=== PATIENT | male | born 1965 | race Caucasian/White ===

== ENCOUNTER → 2024-01-22 | Outpatient (CLI) | payer OTHER, SELFPAY ==
--- NOTE | 2024-01-22 11:03 | RAD_ITS ---
INDICATION: PAIN EXAMINATION/TECHNIQUE: X-RAY - RIGHT XR Shoulder Min 2 Views COMPARISON: No previous relevant examinations for comparison. FINDINGS: SOFT TISSUES: No soft tissue swelling or gas. No radiopaque foreign body. BONES/JOINTS: 1. No acute fracture or subluxation.. Normal alignment. Preservation of the joint space.. No sclerotic or destructive changes observed. 2. There is normal glenohumeral motion. There is normal alignment of the acromioclavicular joint. 3. The clavicle, acromion, scapula and RIGHT rib cage have normal appearance. RAD/Shoulder min 2 Views IMPRESSION: 1. No fracture malalignment or focal bony or joint space abnormality involving the shoulder.. Electronically Signed: Bridger Mcintyre MD at 20:34 EDT ,
== END | disposition home or self-care (01) ==
LOC: MTRAD 11:01
PROVIDERS: PCP Family Medicine; Referring Provider Family Medicine; Visit Provider Family Medicine
DX: M25.511 Pain in right shoulder (principal)
CPT/HCPCS: 73030

== ENCOUNTER → 2024-01-23 | Outpatient (CLI) | payer OTHER, SELFPAY ==
[2024-01-23 08:02] LABS: Absolute Lymphocyte Count 2.28 X10^3/uL (0.83-4.51); Basophil# 0.05 X10^3/uL; Basophil% 0.8 % (0-1); Eosinophil# 0.13 X10^3/uL; Eosinophils% 2.1 % (0-5); Hematocrit 45.5 % (40-54); Hemoglobin 14.6 g/dL (13.0-16.5); Lymphocyte # 2.28 X10^3/ul (0.83-4.51); Lymphocyte % 37.1 % (19-41); Mean Corp Hgb Conc 32.1 g/dL (32-36); Mean Corpuscular Hgb 29.1 pg (27.0-32.0); Mean Corpuscular Volume 90.6 fL (80-94); Mean Platelet Vol. 10.6 fl (6.2-12.0); Monocyte# 0.72 X10^3/uL; Monocyte% 11.7 % (0-10); NRBC Flagged by Analyzer 0 % (0-5); Neutrophil # 2.95 X10^3/uL (2.7-7.7); Platelet Count 195 K/mm3 (150-450); RBC Distribution Width CV 13.3 % (11.6-14.6); RBC Distribution Width SD 44.1 fl (35.1-43.9); Red Blood Count 5.02 M/mm3 (4.6-6.2); White Blood Count 6.2 K/mm3 (4.4-11.0)
[2024-01-23 08:32] LABS: AST(SGOT) 25 U/L (15-37); Alanine Aminotransfer ALT/SGPT 32 U/L (16-61); Albumin, Serum 3.6 g/dL (3.2-5.0); Alkaline Phosphatase 97 U/L (45-117); Anion Gap 2 (5-15); BUN 18 mg/dL (7-18); BUN/Creat Ratio 12.3 RATIO (10-20); Calcium,Total 8.8 mg/dL (8.5-10.1); Chloride 109 mmol/L (98-107); Cholesterol 267 mg/dL (200); Creatinine, Serum 1.46 mg/dL (0.70-1.30); EST Glomerular Filtration Rate 52 mL/min (>60); Est Glom Filt Rate - Afr Amer 63 mL/min (>60); Globulin 3.7 g/dL (2.2-4.2); Glucose 102 mg/dL (74-106); High Density Lipoprotein 58 mg/dL; Potassium 4.6 mmol/L (3.5-5.1); Protein, Total 7.3 g/dL (6.4-8.2); Sodium Level 139 mmol/L (136-145); Triglycerides 185 mg/dL; Very Low Density Lipoprotein 37 mg/dL (5-40)
== END | disposition home or self-care (01) ==
LOC: LAB 07:36
PROVIDERS: PCP Family Medicine; Referring Provider Family Medicine; Visit Provider Family Medicine
DX: Z13.1 Encounter for screening for diabetes mellitus (principal); Z12.5 Encounter for screening for malignant neoplasm of prostate; Z13.220 Encounter for screening for lipoid disorders; R68.82 Decreased libido
CPT/HCPCS: 36415; 80053; 80061; 84153; 84403; 85025; G0103

== ENCOUNTER 2024-03-09 08:15 | Outpatient (RCR) | payer OTHER, SELFPAY ==
--- NOTE | 2024-03-09 09:27 | HP.PTEVAL_ITS ---
Patient's Visit Information Visit Information Visit Information: SKY THOMPSON is a 59 year old M referred to Physical Therapy by Sandra Braun MD with a diagnosis of R shoulder pain. Date of Evaluation: 03/09/24 Physical Therapist: Horacio Powers DPT Visit Plan Frequency: 1x/Week Duration: 6 Weeks Plan: 1) RTC strengthening and progressive biceps loading 2) DFM to biceps/anterior shoulder Pt. given exercises today and is to complete I for a few weeks then follow up with PT as needed. Subjective Subjective: Pt. is here today for his initial evaluation with diagnosis of R shoulder pain. Pt. reports no mech of injury, but has had increasing anterior R shoulder pain for the last few months. He goes to the gym, has been so for ~1.5 years. Recently having issues with OH press and some incline benching. He did have an Xray- negative for injury. No MRI at this point in time. No real N/T noted. Pt. is having some discomfort with sleeping on his R side though. Pt. would like to get back to all of his recreational gym exercises without limitations. Pain R anterior shoulder: Pain Intensity (Out of 10): 1 Pain Intensity Range: 0 and 4 Objective Objective: POSTURE: PT. has slight rounded shoulders with slight slouched posture. Pt. is able to self correct. PALPATION: Pt. has marked tenderness at anterior shoulder, long head of biceps and supraspinatus insertion. NEURO: Normal of BUEs, normal sensation and DTR noted. ROM: R shoulder: PROM: full motion, increase at end range flexion, abduction and IR at 90deg of abduction. AROM: Flexion: 170deg mild increase NW, abd 170deg mil d increase NW, functional ER C5 mild increase NW, functional IR L4 mild increase NW. MMT: L shoulder: flexion 21#, abd 22#, ext 38#, ER 27.1#, IR 32.5#. R shoulder: flexion 15.3# mild increase NW, abd 13.4# mild increase NW, ER 22.1#, IR 27.8#. Special Tests R Shoulder Drop Sign - IS Test: Negative R Shoulder Empty Can - SS: Positive R Shoulder Belly Press - SupScap: Negative R Shoulder Neer - Impingement: Positive R Shoulder Molina Yossi - Impingement: Positive R Shoulder Biceps Load Test - Labrum: Negative R Shoulder Yeargasons - SLAP: Negative R Shoulder Speeds Test - Labrum/Biceps: Negative Comments: - hornblowers test Balance/Special Test Scores Quick DASH Score: 15.9075 Goals Goal 1:: LTG: Pt. to be I with HEP for RTC strengthening and biceps loading. Goal Time Frame: 4-6 Weeks Goal 2:: STG: Pt. to sleep throughout the night without increase in symptoms. Goal Time Frame: 2-4 Weeks Goal 3:: LTG: Pt. to have increased R shoulder strength increased by 5# throughout. Goal Time Frame: 4-6 Weeks Goal 4:: LTG: pt. to complete all OH pressing and gym workout without increase in shoulder pain. Goal Time Frame: 6-8 Weeks Rehabilitation Potential Physical Therapy Diagnosis: Pt. has signs and symptoms consistent with R should er pain. Pt. has testing suggesting some slight RTC and biceps involvement. Pt. is tender to the touch at anterior shoulder and some tenderness with ER movements. I would recommend that he work on slowly increasing loading of RTC external rotators and biceps tendons, progressing back into exercises as tolerated. Rehabilitation Potential: Excellent Anticipated Interventions Patient/Client Instruction: Educate patient on: Condition, Plan of Care, Risk Factors and Benefits of Fitness Program For the Purpose of:: To improve decision making, To facilitate caregiver knowledge, To improve self management, To prevent re-injury and To improve ability to perform tasks related to life management Therapeutic Exercise to Include: Strength training, Power training and Scapular Strength/Stabilization For the Purpose of:: To decrease pain, To increase ROM, To improve nutrient delivery to tissue, To increase oxygenation perfusion and To improve muscle performance and motor function Comment: DFM For the Purpose of:: To decrease pain, To improve nutrient delivery to tissue, To increase oxygenation perfusion and To improve muscle performance and motor function Text: Thank you for the opportunity to evaluate your patient. For Medicare and Medicare HMO plans, please review the plan of care and approve it. It will need to be FAXED BACK to us at [phone] for Medicare purposes. For Medicare only, by signing this I certify the plan of care. Please let me know if there are questions or concerns regarding this plan of care. Physician Signature: Date:
== END 2024-03-09 19:00 | disposition home or self-care (01) ==
LOC: PT 08:15
PROVIDERS: PCP Family Medicine; Referring Provider Family Medicine; Visit Provider Family Medicine
DX: M25.511 Pain in right shoulder (principal)
CPT/HCPCS: 97110; 97164

== ENCOUNTER 2024-04-06 07:37 | Day surgery (SDC) | payer OTHER, SELFPAY ==
[2024-04-06] VITALS (8 sets, daily range): BP systolic 95–121; BP diastolic 61–75; PULSE 55–64; RESP 14–18; TEMP 36.1–36.6; O2SAT 96–100; BMI 26.6
[2024-04-06] MEDS: Lactated Ringers 1,000 ML 15 ML IV (08:07)
--- NOTE | 2024-04-06 08:50 | PCM.PRE.AN2 ---
ASA Classification* ASA Classification ASA Classification: 2 Assessment & Plan Anesthesia* Anesthesia Assessment Anesthesia Assessment: Discussed sedation and/or anesthesia options, risks, benefits, and alternatives with patient/parents/legal guardian/POA. Questions invited. The patient/parents/legal guardian/POA seems to understand and agrees to proceed with anesthesia plan. Reviewed the physical assessment, medical history, allergy history and patient home medications list prior to surgery/procedure/anesthetic and documented any changes. Performed airway and anesthesia risk assessments. Anesthesia Type Anesthesia Type: MAC (see written pre anesthesia record for full assessment) Anesthesia Focused Assessment* Temperature: 98 F Pulse Rate: 58 Blood Pressure: 121/75 Respiratory Rate: 16 Pulse Ox: 99 Airway Assessment Mouth opens: >3 cm Mallampati Score: II Focused Labs Anesthesia Preop lab: CBC WBC 6.2 K/mm3 (4.4-11.0) 01/23/24 07:37 RBC 5.02 M/mm3 (4.6-6.2) 01/23/24 07:37 Hgb 14.6 g/dL (13.0-16.5) 01/23/24 07:37 Hct 45.5 % (40-54) 01/23/24 07:37 Plt Count 195 K/mm3 (150-450) 01/23/24 07:37 CHEMISTRY Potassium 4.6 mmol/L (3.5-5.1) 01/23/24 07:37 Sodium 139 mmol/L (136-145) 01/23/24 07:37 BUN 18 mg/dL (7-18) 01/23/24 07:37 Creatinine 1.46 mg/dL (0.70-1.30) H 01/23/24 07:37 Glucose 102 mg/dL (74-106) 01/23/24 07:37 COAG Pre-Assessment Diagnosis/Proposed Procedure Planned Operative Procedure(s): COLONOSCOPY-OA Anesthesia History Anesthesia History - photo retoucher: Anesthesia History - photo retoucher Hx Hospitalization No 03/30/24 13:32 Any Problems With Anesthesia No 03/30/24 13:32 Cholinesterase deficiency No 03/30/24 13:32 You/Your Family Experience No 03/30/24 13:32 fever (hyperthermia) with Relationship Recent Exposure to Contagious No 04/06/24 08:04 Disease Does patient have nerve No 03/30/24 13:32 stimulator Patient instructed to have device shut off --Does patient have Pacemaker No 04/06/24 08:04 or ICD? When Was Last Pacemaker Check QUESTION #4 FULL TEXT: You/Your Family Experience fever (hyperthermia) with Anesthesia Last Oral Intake Last Oral intake: Last Oral Intake NPO since 07:50 04/06/24 08:04 Meds taken in AM with sips of water? Meds patient instructed to take am of surgery PONV PONV - photo retoucher: PONV - photo retoucher Female No 03/30/24 13:32 HX of Motion Sickness No 03/30/24 13:32 HX of N/V After Surgery No 03/30/24 13:32 Non-Smoker Yes 03/30/24 13:32 Duration of Surgery greater No 03/30/24 13:32 than 60 minutes Number of Risk Factors 1 03/30/24 13:32 PONV Score Low Risk 03/30/24 13:32 Height & Weight Height & Weight: Anesthesia: Height & Weight Height 5 ft 10 in 04/06/24 08:04 Weight: 84.1 kg 04/06/24 08:04 Body Mass Index (BMI) 26.6 04/06/24 08:04 Respiratory Assessment Respiratory Assessment - photo retoucher: Respiratory Tract Infection Hx - photo retoucher Hx Respiratory Tract Infection No 03/30/24 13:32 STOP Sleep Apnea STOP Sleep Apnea - photo retoucher: STOP Sleep Apnea - photo retoucher Hx Hypertension No 03/30/24 13:32 Hx Sleep Apnea No 03/30/24 13:32 CPAP BIPAP Do you snore loudly (louder No 03/30/24 13:32 than talking or can be heard Do you often feel tired/ No 03/30/24 13:32 fatigued/ sleepy during daytime? Has anyone observed you stop No 03/30/24 13:32 breathing during sleep? STOP Results Negative 03/30/24 13:32 QUESTION #5 FULL TEXT : Do you snore loudly (louder than talking or can be heard through closed doors)? Tobacco Use History Tobacco Use History - photo retoucher: Tobacco Use History - photo retoucher Tobacco Use Smoking Status Never smoker 03/30/24 13:32 Hx Tobacco Use No 03/30/24 13:32 Years Smoking Packs Smoked per Day Smoking Cessation Date was within the last 15 years Hx Smoking Cessation Date Hx Smoking Cessation Counseling Hematologic Medial History Hematologic Hx - photo retoucher: Hematologic Medical Hx - counter roller Hx of Blood Transfusion No 03/30/24 13:32 Hx of Transfusion in last 3 No 03/30/24 13:32 Months Date of Last Transfusion (if within last 3 months) Ever experience any problems No 03/30/24 13:32 with transfusion(s)? Specify any problems Hx of Preganancy in last 3 N/A 03/30/24 13:32 Months Nurse Filling Out Transfusion VCHRISTIN 03/30/24 13:32 & Questions: Date: 03/30/24 03/30/24 13:32 Time: 13:33 03/30/24 13:32 Patient unable to answer at this time (ie. confused, unrespo /Reproduction History /Reproductive History - photo retoucher: /Reproductive Hx- photo retoucher Hx Now Gestational Age (in weeks): EDC: Hx Hx Para Hx Section SAB Active Medications Active Medications: Current Medications Generic Name Dose Route Start Last Admin Trade Name Freq PRN Reason Stop Dose Admin Lactated Ringer's 1,000 mls @ 15 mls/hr 04/06/24 08:00 04/06/24 08:07 IV 15 mls/hr .Q48H KAM Administration PFSH Medical History Wears glasses Alcohol use Arthritis Back pain Non-smoker Family history of kidney stone Migraine Hx of hepatitis C Hx of renal calculi Family history of colon cancer in father Home Medications ?Medication ?Instructions ?Recorded ?Last Taken ?Type [id number]-[id number]-[id number] 250 1 tab PO Q4-6H PRN pain 02/18/24 Unknown History mg-250 mg-65 mg tablet (Excedrin Migraine) ibuprofen 200 mg tablet 200 mg PO Q6H PRN pain 02/18/24 Unknown History Allergy/AdvReac Type Severity Reaction Status Date / Time No Known Allergies Allergy Verified 04/06/24 08:04 Family History Father Colon cancer, Onset Age: 76 Patient states mass and polyps removed, Unsure if cancerous Lung cancer Prostate cancer Mother Kidney disease Surgical History Hx of tonsillectomy Hx of inguinal hernia repair Hx of colonoscopy Social History household members: spouse current occupational status: employed Smoking Status: Never smoker alcohol intake: current details: moderate alcohol substance use type: does not use Review of Systems (Anesthesia) ROS Narrative System reviewed and no additional complaints, except as documented.
--- NOTE | 2024-04-06 08:55 | PCM.POST.ANE ---
Anesthesia: Postop Eval I Current Vital Signs Temperature: 96.9 F Pulse Rate: 55 Blood Pressure: 95/61 Respiratory Rate: 14 Pulse Ox: 96 Oxygen Delivery Method: Room Air Assessment Airway patent: Yes Spontaneous unlabored respirations: Yes Mental status: Awake and Calm nausea: No Vomiting: No Anesthesia Complication: No Fluid Hydration Crystalloid volume administer (ml): 300 Total IV fluid infused: 300 Progress Note Anesthesia document: Postop Eval 1 completed: Yes
--- NOTE | 2024-04-06 09:24 | OP.COLON_ITS ---
Patient Name: Steve Meyers Procedure Date: 04/06/2024 9:02 AM Date of : 1965 Age: 59 Procedure: Colonoscopy Indications: Screening for colorectal malignant neoplasm Providers: Rakesh Cazares MD Referring MD: Sandra Braun Md Medicines: Propofol per Anesthesia Patient Profile: This is a 59 year old male. Refer to note in patient chart for documentation of history and physical. Last Colonoscopy: 10 years ago. Complications: No immediate complications. Procedure: Pre-Anesthesia Assessment: - Prior to the procedure, a History and Physical was performed, and patient medications and allergies were reviewed. The patient's tolerance of previous anesthesia was also reviewed. The risks and benefits of the procedure and the sedation options and risks were discussed with the patient. All questions were answered, and informed consent was obtained. Prior Anticoagulants: The patient has taken no anticoagulant or antiplatelet agents. After reviewing the risks and benefits, the patient was deemed in satisfactory condition to undergo the procedure. After I obtained informed consent, the scope was passed under direct vision. Throughout the procedure, the patient's blood pressure, pulse, and oxygen saturations were monitored continuously. The Colonoscope was introduced through the anus and advanced to the cecum, identified by appendiceal orifice and ileocecal valve. The colonoscopy was performed without difficulty. The patient tolerated the procedure well. The quality of the bowel preparation was good. The ileocecal valve, appendiceal orifice, and rectum were photographed. Scope In: 9:09:40 AM Scope Withdrawal Time 0 hours 6 minutes 1 second Scope Out: 9:21:13 AM Total Procedure Duration Time 0 hours 11 minutes 33 seconds Findings: The entire examined colon appeared normal on direct and retroflexion views. Impression: - The entire examined colon is normal on direct and retroflexion views. - No specimens collected. Recommendation: - Discharge patient to home. - Resume previous diet. - Continue present medications. - Repeat colonoscopy in 10 years for screening purposes. Procedure Code(s): --- Professional --- 85024, Colonoscopy, flexible; diagnostic, including collection of specimen(s) by brushing or washing, when performed (separate procedure) Diagnosis Code(s): --- Professional --- Z12.11, Encounter for screening for malignant neoplasm of colon CPT copyright 2021 [employer]. All rights reserved. The codes documented in this report are preliminary and upon software engineering analyst review may be revised to meet current compliance requirements. Rakesh Cazares MD 04/06/2024 9:24:02 AM This report has been signed electronically. Number of Addenda: 0 Note Initiated On: 04/06/2024 9:02 AM
--- NOTE | 2024-04-06 09:24 | OP.CCLET_ITS ---
04/06/2024 Sandra Braun Md Re : Colonoscopy procedure for Steve Meyers Dear Aparna This procedure was performed on Saturday, April 06, 2024. My impressions and recommendations are as follows: Impressions : - The entire examined colon is normal on direct and retroflexion views. - No specimens collected. Recommendations : - Discharge patient to home. - Resume previous diet. - Continue present medications. - Repeat colonoscopy in 10 years for screening purposes. My findings are described in the full procedure note, which is enclosed. If I can be of further assistance, please feel free to contact me at Doctor phone number(s): , Work: . Sincerely, Rakesh Cazares MD 04/06/2024 9:24:02 AM This report has been signed electronically.
--- NOTE | 2024-04-06 09:26 | PCM.POST.ANE ---
Anesthesia: Postop Eval I Current Vital Signs Temperature: 97.7 F Pulse Rate: 64 Blood Pressure: 106/69 Respiratory Rate: 16 Pulse Ox: 98 Assessment Airway patent: Yes Spontaneous unlabored respirations: Yes Mental status: Awake and Calm nausea: No Vomiting: No Anesthesia Complication: No Fluid Hydration Crystalloid volume administer (ml): 400 Total IV fluid infused: 400 Progress Note Anesthesia document: Postop Eval 1 completed: Yes
--- NOTE | 2024-04-06 09:34 | POSTOPAN2_ITS ---
Anesthesia Postop Eval I Sum Postop Eval Completion status Anesthesia document: Postop Eval 1 completed: Yes Anesthesia Postop Eval I Summary Anesthesia Postop Eval I Summary: Anesthesia Postop Eval I: Assessment Summary Airway patent Yes 04/06/24 09:31 SOCIAL RESEARCH ASSISTANT.[email or web address] Spontaneous unlabored Yes 04/06/24 09:31 SOCIAL RESEARCH ASSISTANT.GDOTT respirations Mental status Awake,Calm 04/06/24 09:31 SOCIAL RESEARCH ASSISTANT.GDOTT nausea No 04/06/24 09:31 SOCIAL RESEARCH ASSISTANT.GDOTT Vomiting No 04/06/24 09:31 SOCIAL RESEARCH ASSISTANT.GDOTT Anesthesia Postop Eval I: Fluid Summary Crystalloid volume administer 400 04/06/24 09:31 SOCIAL RESEARCH ASSISTANT.GDOTT (ml) Colloids volume administered ( ml) Blood Product volume administered (ml) Total IV fluid infused 400 04/06/24 09:31 SOCIAL RESEARCH ASSISTANT.GDOTT Anesthesia Postop Eval I: Summary Notes Anesthesia Complication No 04/06/24 09:31 SOCIAL RESEARCH ASSISTANT.GDOTT Anesthesia Complication Comment: Post-operative progress note Anesthesia: Postop Eval II Evaluation Mental status: Awake Pain Level: 0 nausea: No Vomiting: No
--- NOTE | 2024-04-06 09:34 | PCM.POSTANE2 ---
Anesthesia Postop Eval I Sum Postop Eval Completion status Anesthesia document: Postop Eval 1 completed: Yes Anesthesia Postop Eval I Summary Anesthesia Postop Eval I Summary: Anesthesia Postop Eval I: Assessment Summary Airway patent Yes 04/06/24 09:31 FORECLOSURE SPECIALIST.GDOTT Spontaneous unlabored Yes 04/06/24 09:31 FORECLOSURE SPECIALIST.GDOTT respirations Mental status Awake,Calm 04/06/24 09:31 FORECLOSURE SPECIALIST.GDOTT nausea No 04/06/24 09:31 FORECLOSURE SPECIALIST.GDOTT Vomiting No 04/06/24 09:31 FORECLOSURE SPECIALIST.GDOTT Anesthesia Postop Eval I: Fluid Summary Crystalloid volume administer 400 04/06/24 09:31 FORECLOSURE SPECIALIST.GDOTT (ml) Colloids volume administered ( ml) Blood Product volume administered (ml) Total IV fluid infused 400 04/06/24 09:31 FORECLOSURE SPECIALIST.GDOTT Anesthesia Postop Eval I: Summary Notes Anesthesia Complication No 04/06/24 09:31 FORECLOSURE SPECIALIST.GDOTT Anesthesia Complication Comment: Post-operative progress note Anesthesia: Postop Eval II Evaluation Mental status: Awake Pain Level: 0 nausea: No Vomiting: No
--- NOTE | 2024-04-09 06:57 | H&P.OPEN ---
HPI - General HPI Narrative STEVE THOMPSON, is a 59 M who presents for screening colonoscopy. Last colonoscopy was 10 years ago. He denies abdominal pain or blood in the stool. No family history of colon cancer. PFSH Medical History Wears glasses Alcohol use Arthritis Back pain Non-smoker Family history of kidney stone Migraine Hx of hepatitis C Hx of renal calculi Family history of colon cancer in father Home Medications ?Medication ?Instructions ?Recorded ?Last Taken ?Type [id number]-bsaygqgavxiqq-iericmfj 250 1 tab PO Q4-6H PRN pain 02/18/24 Unknown History mg-250 mg-65 mg tablet (Excedrin Migraine) ibuprofen 200 mg tablet 200 mg PO Q6H PRN pain 02/18/24 Unknown History Allergy/AdvReac Type Severity Reaction Status Date / Time No Known Allergies Allergy Verified 04/06/24 08:04 Family History Father Colon cancer, Onset Age: 76 Patient states mass and polyps removed, Unsure if cancerous Lung cancer Prostate cancer Mother Kidney disease Surgical History Hx of tonsillectomy Hx of inguinal hernia repair Hx of colonoscopy Social History household members: spouse current occupational status: employed Smoking Status: Never smoker alcohol intake: current details: moderate alcohol substance use type: does not use Past Medical/Surgical History Planned Operation Planned Operative Procedure(s): COLONOSCOPY-OA Previous Hospitalizations/Surgeries HX Hospitalizations: No Any Problems With Anesthesia: No You/Your Family Experience Fever (Hyperthermia) With Anes: No Cholinesterase deficiency: No Cardiovascular Hx Hypertension: No HX Edema: No Respiratory Hx Sleep Apnea: No Hx Respiratory Tract Infection/Cold (presently): No Do You Snore Loudly (louder than talking or can be heard): No Do You Often Feel Tired/ Fatigued/ Sleepy Dring Daytime?: No Has Anyone Observed You Stop Breathing During Sleep?: No Result (for STOP score): Negative Smoking Status: Never smoker Neurological Does patient have nerve stimulator: No Miscellaneous Recent Exposure to Contagious Disease: No Allergies No Known Allergies Allergy (Verified 04/06/24 08:04) Discharge Is Pt Admitted From a Long Term, or a Correction: No After D/C, Where Do you Plan to Go: Return Home Vital Signs Vital Signs Vital Signs: Weight Weight: 185 lb 6.54 oz Body Mass Index (BMI) 26.6 Physical Exam Const alert and oriented x3 HEENT normocephalic Eyes PERRL Resp normal respiratory effort and normal air movement Cardio regular rate and regular rhythm GI soft to palpation, non-tender and non-distended Extremity normal to inspection Assessment & Plan Assessment/Plan (1) Encounter for screening for malignant neoplasm of colon: PLAN: I explained endoscopy in detail to the patient. I explained the risks including but not limited to stroke or heart attack with anesthesia, perforation of the GI tract, bleeding, infection. I explained that any of these could necessitate further emergency surgery. The patient understands and all questions were answered sufficiently. The patient wishes to proceed with procedure. Rakesh Cazares MD Pager: [facility] [address] [place] [address] [address] [place] [address] Office: Surgery Risks - Colonoscopy Risks Include but are not Limited To: Risks include but are not limited to: Bleeding, perforation requiring further surgery, inability to complete colonoscopy requiring barium enema.
== END 2024-04-06 10:04 | disposition home or self-care (01) ==
LOC: EN 07:41 → AC 07:43
PROVIDERS: PCP Family Medicine; Referring Provider Family Medicine; Visit Provider Surgery
PROC: 0DJD8ZZ Inspection of Lower Intestinal Tract, Via Natural or Artificial Opening Endoscopic (ICD-10-PCS; CPT 45378; principal; 2024-04-06 09:10)
DX: Z12.11 Encounter for screening for malignant neoplasm of colon (principal); Z80.0 Family history of malignant neoplasm of digestive organs
CPT/HCPCS: G0121; J7120

== ENCOUNTER → 2025-01-25 | Outpatient (CLI) | payer OTHER, SELFPAY ==
--- NOTE | 2025-01-25 09:07 | RAD_ITS ---
PROCEDURE: LUMBAR SPINE 2 OR 3 VIEWS 01/25/2025 REASON FOR EXAM: CHRONIC BACK PAIN TECHNIQUE: 2 view(s) of the lumbar spine FINDINGS: Vertebrae: No acute fracture. Discs: Disc space heights are preserved. Alignment: Mild levoscoliosis centered at T12. No subluxation. Other: Facet hypertrophy in the lower lumbar spine. RAD/Lumbar Spine 2 or 3 Views IMPRESSION: Mild levoscoliosis with degenerative disc disease. Reading Location: [id number]
[2025-01-25 12:38] LABS: Basophil# 0.02 X10^3/uL; Basophil% 0.3 % (0-1); Eosinophil# 0.11 X10^3/uL; Eosinophils% 1.9 % (0-5); Hematocrit 45.3 % (40-54); Lymphocyte % 33.2 % (19-41); Mean Corp Hgb Conc 33.1 g/dL (32-36); Mean Corpuscular Hgb 30.7 pg (27.0-32.0); Mean Corpuscular Volume 92.6 fL (80-94); Mean Platelet Vol. 10.9 fl (6.2-12.0); Monocyte# 0.67 X10^3/uL; Monocyte% 11.7 % (0-10); NRBC Flagged by Analyzer 0 % (0-5); Neutrophil # 3.01 X10^3/uL (2.7-7.7); Neutrophil % 52.7 % (47-70); Platelet Count 185 K/mm3 (150-450); RBC Distribution Width CV 12.1 % (11.6-14.6); RBC Distribution Width SD 41.8 fl (35.1-43.9); Red Blood Count 4.89 M/mm3 (4.6-6.2); White Blood Count 5.7 K/mm3 (4.4-11.0)
[2025-01-25 13:14] LABS: ALB/GLOB Ratio 1.4 RATIO (0.9-2.4); AST(SGOT) 24 U/L (<=37); Alanine Aminotransfer ALT/SGPT 25 U/L (<=46); Albumin, Serum 4.1 g/dL (3.4-4.8); Alkaline Phosphatase 112 U/L (40-129); Anion Gap 10 (5-15); BUN 12 mg/dL (4-19); BUN/Creat Ratio 10.2 RATIO (10-20); Calcium,Total 9.2 mg/dL (7.6-11.0); Carbon Dioxide 23.8 mmol/L (21.0-32.0); Chloride 104 mmol/L (98-108); Cholesterol 269 mg/dL (<=200); Creatinine, Serum 1.15 mg/dL (0.70-1.20); EST Glomerular Filtration Rate 72 (>60); Glucose 100 mg/dL (70-99); High Density Lipoprotein 48 mg/dL; Low Density Lipoprotein Calc. 180 mg/dL; PSA,Total - Annual Screen 2.06 ng/mL (0.02-4.00); Potassium 4.3 mmol/L (3.3-5.1); Protein, Total 7.1 g/dL (5.9-8.4); Sodium Level 138 mmol/L (133-145); Total Bilirubin 0.49 mg/dL (0.00-1.30); Triglycerides 206 mg/dL; Very Low Density Lipoprotein 41 mg/dL (5-40)
== END | disposition home or self-care (01) ==
LOC: MTLAB 09:07
PROVIDERS: PCP Family Medicine; Referring Provider Family Medicine; Visit Provider Family Medicine
DX: M54.9 Dorsalgia, unspecified (principal); N18.30 Chronic kidney disease, stage 3 unspecified; G89.29 Other chronic pain; Z13.220 Encounter for screening for lipoid disorders; Z12.5 Encounter for screening for malignant neoplasm of prostate
CPT/HCPCS: 36415; 72100; 80053; 80061; 84153; 85025; G0103